=== PATIENT | female | born 1970 | race African-American/Black ===

== ENCOUNTER 2019-04-03 20:17 | Emergency (ER) | payer OTHER, MEDICAID ==
[~2019-04-03] VITALS: Ht 175.3 cm; Wt 102.5 kg
[2019-04-03] MEDS ORDERED: HYDROCHLOROTHIA25 M2 PO (20:29)
[2019-04-03 20:53] LABS: ABSOLUTE BASOPHILS 0.1 thou/uL (0.0-0.2); ABSOLUTE EOSINOPHILS 0.2 thou/uL (0.0-0.7); ABSOLUTE MONOCYTES 0.7 thou/uL (0.0-1.2); ABSOLUTE NEUTROPHILS 3.9 thou/uL (1.6-8.1); BASOPHILS 1.3 %; EOSINOPHILS 3.5 %; HEMATOCRIT 38.3 % (37.0-47.0); HEMOGLOBIN 12.8 gm/dL (12.0-15.0); LYMPHOCYTES 29.2 %; MCH 28.1 pg (26.0-34.0); MCHC 33.4 g/dL (28.0-37.0); MCV 83.9 fL (80.0-100.0); MONOCYTES 10.2 %; MPV 7.7 fl. (7.2-11.1); NUCLEATED RBCS 0 /100WBC; PLATELET COUNT* 227 thou/uL (150-400); POLYS 55.8 %; RBC 4.56 mil/uL (4.20-5.00); RDW-CV 14.7 % (10.5-14.5); WBC 6.9 thou/uL (4.0-11.0)
[2019-04-03 21:04] LABS: CALCIUM 8.3 mg/dL (8.5-10.1); CREATININE 1.4 mg/dL (0.6-1.3)
[2019-04-03 21:08] LABS: ALBUMIN 3.6 g/dL (3.4-5.0); TOTAL BILIRUBIN 0.2 mg/dL (<0.1-1.0); TOTAL PROTEIN 8.3 g/dL (6.4-8.2)
[2019-04-03] MEDS ORDERED: HYDROCHLOROTH12.5 M1 PO (21:26)
[2019-04-03 21:48] VITALS: BP 108/72
--- NOTE | 2019-04-04 10:37 | EKG ---
[place] [address] ELECTROCARDIOGRAM REPORT Name: DUNCAN ROBERT Room: [facility]#: [id number] Admission: 04/03/19 Attend Phys: Discharge: 04/03/19 Date of : 68 Report #: [id number] THIS REPORT FOR: //name// 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[place] : 1970 Requested By: Chanda Angel Order Number: [id number] MD: Thong Huang Measurements Intervals [place] Rate: 81 P: 67 NM: 143 QRS: 49 QRSD: 91 T: 24 QT: 371 QTc: 431 Interpretive Statements Sinus rhythm Consider left ventricular hypertrophy No previous ECG available for comparison Electronically Signed On 04-04-2019 10:37:21 [employer] by Thong Huang [email or web address] <ELECTRONICALLY SIGNED> By: Candido Huang MD, [facility] 04/04/19 [facility] 56 56 Candido Huang MD, FACC /EPI
== END 2019-04-03 21:48 | disposition home or self-care (01) ==
LOC: M.ERS 20:17
PROVIDERS: Nurse Practitioner Family
DX: R03.1 Nonspecific low blood-pressure reading (principal); T50.2X5A Adverse effect of carbonic-anhydrase inhibitors, benzothiadiazides and other diuretics, initial encounter; I10 Essential (primary) hypertension; Z88.1 Allergy status to other antibiotic agents; Z88.2 Allergy status to sulfonamides; Z88.6 Allergy status to analgesic agent; Y92.89 Other specified places as the place of occurrence of the external cause